=== PATIENT | female | born 1980 | race Caucasian/White ===

== ENCOUNTER → 2021-12-21 | Outpatient (CLI) | payer OTHER ==
[~2021-12-21] MED LIST: ALPRAZOLAM0.5 MG PO; DOXYCYCLINE HY100 MG PO; OXYCODONE HCL15 MG PO; PERCOCET 5-3251 EACH PO; SEROQUEL200 MG PO; ZANAFLEX 4 MG TA4 MG PO; ZOFRAN4 MG PO
== END ==
LOC: LAB 13:20
DX: Z20.822 Contact with and (suspected) exposure to COVID-19 (principal)
CPT/HCPCS: U0003